=== PATIENT | male | born 1970 | race Caucasian/White ===

== ENCOUNTER 2017-03-17 10:13 | Inpatient (IN) | payer BC ==
[2017-03-17 10:49] LABS: BASOPHIL 0.7 % (0-2.0); EOSINOPHIL 0.7 % (0-4.5); MCH 31.1 pg (25.7-33.7); MCHC 34.6 g/dl (32.0-35.9); MEAN PLT VOLUME 8.4 fl (7.5-11.1); NEUTROPHILS 71.6 % (42.8-82.8); PLATELET COUNT 194 K/MM3 (134-434); RDW 14.9 % (11.9-15.9); WHITE BLOOD COUNT 7.3 K/mm3 (4.0-10.0)
--- NOTE | 2017-03-17 11:42 | PDOC ---
History of Present Illness - General Chief Complaint: Lightheaded Stated Complaint: LIGHTHEADED Time Seen by Provider: 03/17/17 10:17 History Source: Patient Exam Limitations: No Limitations - History of Present Illness Initial Comments: 03/17/17 11:03 46-year-old male presents to the ED for evaluation of intermittent dizziness worsened when leaning over For the past 3 weeks associated intermittent generalized headache, greater on the right side. Patient denies fever, chills, visual changes, neck pain, shortness of breath, chest pain, cough, abdominal pain, nausea, lower extremity edema, or weakness. Patient does state history of hypertension and takes his medication routinely but states he does not take his medication for the past 2 months for elevated cholesterol. Patient also state smokes a pack and half a day of cigarettes and today had went to his primary care physician for evaluation of symptoms above and when the EKG was reviewed by the provider Dr. Major and then reviewed by Dr. Koehler credit verification clerk it was concerning for either early repolarization versus stemi. Timing/Duration: intermittent Severity: moderate Associated Symptoms: reports: headaches, other Past History - Past Medical History Allergies/Adverse Reactions: Allergies Allergy/AdvReac Type Severity Reaction Status Date / Time No Known Allergies Allergy Verified 03/17/17 10:33 Home Medications: Ambulatory Orders Clonazepam [KlonoPIN] 0.5 mg PO BID 03/17/17 Lisinopril 10 mg PO DAILY 03/17/17 Risperidone [Risperdal] 2 mg PO DAILY 03/17/17 Sertraline HCl 25 mg PO AM 03/17/17 Sertraline HCl 50 mg PO HS 03/17/17 Trazodone HCl [Desyrel -] 50 mg PO HS 03/17/17 HTN: Yes Hypercholesterolemia: Yes Psychiatric Problems: Yes (depression/anxiety) - Family Disease History Family Disease History: CA: Father (lung) - Psycho/Social/Smoking Cessation Hx Anxiety: No Suicidal Ideation: No Smoking History: Current every day smoker Have you smoked in the past 12 months: Yes Number of Cigarettes Smoked Daily: 30 Information on smoking cessation initiated: No Hx Alcohol Use: No Drug/Substance Use Hx: No Substance Use Type: None Patient Lives Alone: Yes Lives with/in: lives alone Review of Systems - Review of Systems Able to Perform ROS?: Yes Constitutional: No: Symptoms Reported HEENTM: No: Symptoms Reported Respiratory: No: Symptoms reported Cardiac (ROS): Yes: Lightheadedness ABD/GI: No: Symptoms Reported : No: Symptoms Reported Musculoskeletal: No: Symptoms Reported Integumentary: No: Symptoms Reported Neurological: Yes: Headache, Dizziness Hematologic/Lymphatic: No: Symptoms Reported *Physical Exam - Vital Signs Last Vital Signs Temp Pulse Resp BP Pulse Ox 97.3 F L 68 20 126/92 97 03/17/17 10:30 03/17/17 10:30 03/17/17 10:30 03/17/17 10:30 03/17/17 10:30 - Physical Exam General Appearance: Yes: Nourished, Appropriately Dressed. No: Apparent Distress HEENT: positive: KARMA, TMs Normal, Pharynx Normal. negative: Pale Conjunctivae Neck: positive: Normal Thyroid, Supple. negative: Lymphadenopathy (R), Lymphadenopathy (L) Respiratory/Chest: positive: Lungs Clear, Normal Breath Sounds. negative: Respiratory Distress, Accessory Muscle Use Cardiovascular: positive: Regular Rhythm, Regular Rate. negative: Murmur Gastrointestinal/Abdominal: positive: Soft. negative: Tenderness Integumentary: positive: Normal Color, Warm, Moist Neurologic: positive: Normal Mood/Affect (mildly anxious), Motor Strength 5/5 ( ambulatory) Heart Score/ECG Review - History History: Slightly suspicious - Electrocardiogram EKG: Normal - Age Age: 45-65 - Risk Factors Risk Factors Heart Score: Yes Hx Hypercholesterolemia, Yes Hx Hypertension, Yes Smoking History Based on the list above the patient has:: >/=3 risk factors or Hx atherosclerotic disease - Troponin Troponin: </= normal limit - Score Heart Score - Total: 3 - ECG Intrepretation Rhythm: Regular Rhythm (rate 62 with noted early repolarization) ED Treatment Course - LABORATORY CBC & Chemistry Diagram: 03/17/17 10:33 03/17/17 10:33 - ADDITIONAL ORDERS Additional order review: 03/17/17 10:33 RBC 4.58 MCV 90.0 MCHC 34.6 RDW 14.9 MPV 8.4 Neutrophils % 71.6 Lymphocytes % 20.8 Monocytes % 6.2 Eosinophils % 0.7 Basophils % 0.7 - RADIOLOGY Radiology Studies Ordered: Category Date Time Status CHEST CT WITH CONTRAST [CT] Stat CT Scan 03/17/17 11:[address] WITHOUT CONTRAST [CT] Stat CT Scan 03/17/17 10:25 Taken CHEST X-RAY PORTABLE* [RAD] Stat Radiology 03/17/17 10:25 Completed CAROTID COLOR FLOW DOPP US [US] Stat Ultrasound 03/17/17 10:25 Ordered Medical Decision Making - Medical Decision Making 03/17/17 11:12 Patient sent over from Dr. Major's office to evaluate for dizziness and abnormal EKG. Patient with strong smoking history along with hypertension and dyslipidemia which she does not take his Lipitor for the past 2 months due to noncompliance. Patient also has family history of lung CA. Patient concerning for ACS versus intracranial pathology versus carotid involvement versus lung involvement. Patient ordered for labs including cardiac enzymes, CBC, comp chest x-ray, EKG head CT, and carotid duplex 03/17/17 11:50 Chest x-ray shows a noncalcified well demarcated circular mass in the right upper hemothorax causing deviation of his trachea to the left side. The size of the mass is apparently 7 cm x 6 cm which on the differential is lymphoma versus thymoma among other conditions. Patient ordered for CT with IV contrast of the chest. Laboratory Tests 03/17/17 03/17/17 10:33 10:33 WBC 7.3 Hgb 14.2 Hct 41.2 Plt Count 194 Neutrophils % 71.6 Sodium 141 Potassium 4.9 Chloride 107 Carbon Dioxide 26 Anion Gap 8 BUN 20 H Creatinine 0.9 Creat Clearance w eGFR > 60 Random Glucose 108 H Calcium 9.2 Total Bilirubin 0.3 AST 13 L Alkaline Phosphatase 51 Troponin I < 0.02 Total Protein 7.1 Albumin 4.0 03/17/17 13:27 CT of the chest shows a large well circumscribed right upper lobe mass of uncertain etiology measuring 9.7 x 9.1 x 9.2 cm. Malignancy cannot be excluded and a percutaneous needle biopsy is recommended at this time. Due to patient's symptoms and recent findings I will contact the patient's PCP Dr. Major to discuss admission. The medical can't year has called the office of Dr. Koehler 3 with no call back. I have spoken to Dr. Mcgee who recommended I speak to Dr. Koehler. Patient is no complaints of chest pain, dyspnea troponins are negative. Carotid Doppler shows no evidence of hemodynamically significant stenosis. No loss of volume plaque or evidence of dissection. 03/17/17 13:[address] Koehler who recommended a second troponin EKG and echo and to admit to telemetry. I discussed the case with Dr. romeo who will accept the patient to service. Patient will be admitted to telemetry inpatient. *DC/Admit/Observation/Transfer Diagnosis at time of Disposition: Dizziness, Abnormal electrocardiography, Mass of right lung - Discharge Dispostion Admit: Yes
[2017-03-17 11:46] LABS: ANION GAP 8 (8-16); BILIRUBIN,TOTAL 0.3 mg/dL (0.2-1.0); CALCIUM 9.2 mg/dL (8.5-10.1); CO2 26 mmol/L (21-32); CREATININE 0.9 mg/dL (0.7-1.3); GLUCOSE,RANDOM 108 mg/dL (74-106); SGOT/AST 13 U/L (15-37); SGPT/ALT 23 U/L (12-78); TOT PROT 7.1 g/dl (6.4-8.2)
[2017-03-17 11:49] LABS: ALK PHOS 51 U/L (45-117); TROPONIN I < 0.02 ng/ml (0.00-0.05)
[2017-03-17] MEDS ORDERED: LORAZEPAM CARPU-JECT 2 MG/ML DISP.SYRIN IVPUSH ONE (14:51)
--- NOTE | 2017-03-17 15:04 | HP ---
Admitting History and Physical - Primary Care Physician PCP: Mari Major - Admission Chief Complaint: I feel fine History of Present Illness: Mr Alexander is a 46 year old male who comes in with possible abnormal EKG readings. He says he is feeling fine and is without complaint. He denies fevers , chills, lightheadedness, passing out, chest pain, shortness of breath, nausea , vomiting, diarrhea, constipation, difficulty or pain on urination, or swelling. He was at his normal doctors appointment today and had possible EKG changes. He was sent here for further evaluation. History Source: Patient Limitations to Obtaining History: No Limitations - Past Medical History Cardiovascular: Yes: HTN Psych: Yes: Anxiety - Past Surgical History Past Surgical History: Yes: None - Smoking History Smoking history: Current every day smoker Have you smoked in the past 12 months: Yes Aproximately how many cigarettes per day: 30 - Alcohol/Substance Use Hx Alcohol Use: No History of Substance Use: reports: None - Social History ADL: Independent History of Recent Travel: No Home Medications - Allergies Allergies/Adverse Reactions: Allergies Allergy/AdvReac Type Severity Reaction Status Date / Time No Known Allergies Allergy Verified 03/17/17 10:33 - Home Medications Home Medications: Ambulatory Orders Clonazepam [KlonoPIN] 0.5 mg PO BID 03/17/17 Lisinopril 10 mg PO DAILY 03/17/17 Risperidone [Risperdal] 2 mg PO DAILY 03/17/17 Sertraline HCl 25 mg PO AM 03/17/17 Sertraline HCl 50 mg PO HS 03/17/17 Trazodone HCl [Desyrel -] 50 mg PO HS 03/17/17 Family Disease History - Family Disease History Family Disease History: CA: Father (lung) Review of Systems Findings/Remarks: Full review of systems obtained, as per HPI and otherwise negative Physical Examination Vital Signs: Vital Signs Temperature 97.3 F L 03/17/17 10:30 Pulse Rate 68 03/17/17 10:30 Respiratory Rate 20 03/17/17 10:30 Blood Pressure 126/92 03/17/17 10:30 O2 Sat by Pulse Oximetry (%) 97 03/17/17 10:30 Constitutional: Yes: Well Nourished, No Distress, Calm Eyes: Yes: Conjunctiva Clear, EOM Intact, PERRL HENT: Yes: Atraumatic, Normocephalic Cardiovascular: Yes: Regular Rate and Rhythm. No: Gallop, Murmur, Rub Respiratory: Yes: Regular, CTA Bilaterally. No: Rales, Rhonchi, Wheezes Gastrointestinal: Yes: Normal Bowel Sounds, Soft. No: Distention, Tenderness Extremities: Yes: WNL Edema: No Labs: Laboratory Results - last 24 hr 03/17/17 03/17/17 10:33 10:33 WBC 7.3 RBC 4.58 Hgb 14.2 Hct 41.2 MCV 90.0 MCH 31.1 MCHC 34.6 RDW 14.9 Plt Count 194 MPV 8.4 Neutrophils % 71.6 Lymphocytes % 20.8 Monocytes % 6.2 Eosinophils % 0.7 Basophils % 0.7 Sodium 141 Potassium 4.9 Chloride 107 Carbon Dioxide 26 Anion Gap 8 BUN 20 H Creatinine 0.9 Creat Clearance w eGFR > 60 Random Glucose 108 H Calcium 9.2 Total Bilirubin 0.3 AST 13 L ALT 23 Alkaline Phosphatase 51 Creatine Kinase 74 Troponin I < 0.02 Total Protein 7.1 Albumin 4.0 Imaging - Results Chest X-ray: Report Reviewed, Image Reviewed Cat Scan: Report Reviewed, Image Reviewed Problem List - Problems (1) Mass of right lung Assessment/Plan: -patient with newly found right lung mass -admit to the hospital -will need biopsy, consult pulmonary -concerning for malignancy with smoking history and family history Code(s): R91.8 - OTHER NONSPECIFIC ABNORMAL FINDING OF LUNG FIELD (2) Abnormal EKG Assessment/Plan: -cardiology consulted -first set of cardiac enzymes negative -monitor on telemetry Code(s): R94.31 - ABNORMAL ELECTROCARDIOGRAM [ECG] [EKG] (3) Anxiety Assessment/Plan: -continue home regimen -add prn ativan, patient is very anxious considering diagnosis Code(s): F41.9 - ANXIETY DISORDER, UNSPECIFIED (4) HTN (hypertension) Assessment/Plan: -continue lisinopril Code(s): I10 - ESSENTIAL (PRIMARY) HYPERTENSION (5) Tobacco abuse Assessment/Plan: -instructed patient he cannot smoke while admitted -nicotine patch Code(s): Z72.0 - TOBACCO USE
[2017-03-17] MEDS ORDERED: LORAZEPAM CARPU-JECT 2 MG/ML DISP.SYRIN ONE (15:05)
--- NOTE | 2017-03-17 15:48 | CON.CARD ---
Consult Consult Specialty:: cardio Referred by:: agueda Reason for Consultation:: LH, abnormal ECG - History of Present Illness Chief Complaint: lightheaded History of Present Illness: 46 yo male sent from PMD today for very abnormal ecg with changes vs prior. sees dr romero in our office. presented for sick visit to office today c/o lightheadedness for the past 3 weeks when he bends down and gets up quickly, or when he gets up out of bed. sees black and he feels like he's going to lose his balance and faint. Denies any spinning sensation his head. The whole episode lasts for 5-8 seconds. frequency episodes, had to take off from work x2d b/c of this. Of note, he's lost 20 pounds because he's doing a lot more walking in his opinion. He has started to drink more water and Gatorade to be more hydrated which helped a little bit but sx's didn't resolve. Never gets chest discomfort, palpitations, or SOB. ECG in office today showed concave ST segment elevation in lateral leads and V4- 6 with deep TWIs inferior leads--changed vs 10/25/16 (no other priors). there was terminal QRS complex finding suggestive of possible early repolarization normal variant. no SD depression and no signif SD elevation in lead aVR. sent to ER for STARR x 2 and echo. CXR showed mass in RUL--CT chest showed 9cm well-demarcated mass. continues to deny any cp, sob, palpitations. no dizzy here in hospital bed. denies facial plethora/pain though has had mild PORTILLO PMH: HTN HPL + active cigs depressions (prior hospitalization, on meds) no DM no prior CV dz FH: father lung cancer; no CAD M-GM and GF and M-uncle with CO/CAD - Alcohol/Substance Use Hx Alcohol Use: No - Smoking History Smoking history: Current every day smoker Have you smoked in the past 12 months: Yes Aproximately how many cigarettes per day: 30 Home Medications - Allergies Allergies/Adverse Reactions: Allergies Allergy/AdvReac Type Severity Reaction Status Date / Time No Known Allergies Allergy Verified 03/17/17 10:33 - Home Medications Home Medications: Ambulatory Orders Clonazepam [KlonoPIN] 0.5 mg PO BID 03/17/17 Lisinopril 10 mg PO DAILY 03/17/17 Risperidone [Risperdal] 2 mg PO DAILY 03/17/17 Sertraline HCl 25 mg PO AM 03/17/17 Sertraline HCl 50 mg PO HS 03/17/17 Trazodone HCl [Desyrel -] 50 mg PO HS 03/17/17 Review of Systems - Review of Systems Constitutional: denies: Chills, Fever Eyes: denies: Eye Pain HENT: denies: Nasal Congestion Neck: denies: Stiffness Cardiovascular: denies: Palpitations Respiratory: denies: Orthopnea, PND Gastrointestinal: denies: Diarrhea, Rectal Bleeding Genitourinary: denies: Burning, Hematuria Musculoskeletal: denies: Muscle Pain Integumentary: denies: Rash Neurological: denies: Numbness, Seizure, Syncope Endocrine: denies: Excessive Sweating Hematology/Lymphatic: denies: Excessive Bleeding Vital Signs: Vital Signs Temperature 97.3 F L 03/17/17 10:30 Pulse Rate 68 03/17/17 10:30 Respiratory Rate 20 03/17/17 10:30 Blood Pressure 126/92 03/17/17 10:30 O2 Sat by Pulse Oximetry (%) 97 03/17/17 10:30 Constitutional: Yes: Well Nourished, No Distress Eyes: No: Sclera Icterus HENT: No: Nasal Congestion Neck: No: Decreased ROM Respiratory: Yes: CTA Bilaterally. No: Accessory Muscle Use, Rales, Wheezes Gastrointestinal: Yes: Normal Bowel Sounds. No: Distention, Hepatomegaly, Palpable Mass, Tenderness Cardiovascular: Yes: Regular Rate and Rhythm. No: Rub JVD: Yes Carotid Bruit: No PMI: Non-Displaced Heart Sounds: Yes: S1, S2. No: Gallop Murmur: No: Systolic Murmur, Diastolic Murmur Musculoskeletal: Yes: Other (No kyphosis) Extremities: No: Cold, Cyanosis Edema: No Peripheral Pulses: 2+ Left Carotid, 2+ Right Carotid, 2+ Left Doralis Pedis, 2+ Right Dorsalis Pedis Integumentary: No: Jaundice Neurological: Yes: Alert, Oriented (x3) Psychiatric: No: Agitated - Other Data Labs, Other Data: Laboratory Tests 03/17/17 03/17/17 10:33 10:33 WBC 7.3 Hgb 14.2 Plt Count 194 Sodium 141 Potassium 4.9 Carbon Dioxide 26 BUN 20 H Creatinine 0.9 AST 13 L ALT 23 Creatine Kinase 74 Troponin I < 0.02 Assessment/Plan CT head: no acute pathology ECG 03/17 am from office: see [facility] ECG x 2 03/17 (ER and on 4W): NSR, early repol appearance with ST elevations signif less than office ecg today; inferior TWIs much less pronounced Carotid dopplers: no plaque or stenosis or dissection seen Echo 03/17/17 (): nl LVSF with no RWMA seen. nl RV. nl LA. valves WNL. normal aortic root. no peric effusion. lightheadedness: -new positional sx, more likely related to change in head position than upright posture with leg dependency. still, may be orthostatic hypotension (recent 20 lb wt loss, with accentuation of anti-hypertensive med effect?) -? related to local lung mass effects?--no overt SVC syndrome/facial plethora appreciated on exam though mild JVD noted--per pulm/pmd -not overtly hypovolemic by labs -check orthostatics -will hold lisinopril for now abnormal ECG: -suspect normal variant pattern (early repol) with waxing and waning appearance -no sx's at all of acute myocardial ischemia -trop neg x 1--for rpt later tonight -echo normal LVSF with no RWMA, no effusion -has no rub on exam HTN: -hold lisinopril, observe LH sx's, check orthostatics -monitor bp trend HPL: -per outpt mgmt lung mass: -per PMD/pulm for biopsy plans +tobacco abuse: -pt counselled on cessation and benefits re: CV and malignancy risk
[2017-03-17] MEDS: LORazepam 1 MG TABLET PO PRN (16:10)
[2017-03-17] MEDS: NICOTINE 21 MG/24 HOURS TOPICAL PATCH TD SCH (16:10)
[2017-03-17 16:15] VITALS: BMI 29.8
[2017-03-17 18:26] LABS: CPK 76 IU/L (39-308); TROPONIN I < 0.02 ng/ml (0.00-0.05)
[2017-03-17] MEDS: ACETAMINOPHEN 325 MG TABLET (FP) PO PRN (20:14)
[2017-03-17] MEDS: traZODone HCL 50 MG TABLET (FP) PO SCH (21:02)
[2017-03-17] MEDS: SERTRALINE HCL 50 MG TABLET (FP) PO SCH (21:02)
[2017-03-17] MEDS: clonazePAM 0.5 MG TABLET PO SCH (21:02)
[2017-03-17] MEDS ORDERED: oxyCODONE HCL 5 MG TABLET PO ONE (21:42)
--- NOTE | 2017-03-17 22:07 | HOSP ---
Subjective - Review of Symptoms Events since last encounter: Called by the nurse 2x, stating that the patient takes percocet at home since has chronic pain . will order oxycodone 5mg x 1 dose now, tylenol was given earlier. As per nurse, patient takes 10mg percocet at home. Vital Signs Temperature 98.0 F 03/17/17 17:00 Pulse Rate 73 03/17/17 17:00 Respiratory Rate 18 03/17/17 17:00 Blood Pressure 137/91 03/17/17 17:00 O2 Sat by Pulse Oximetry (%) 95 03/17/17 15:25 CBCD WBC 7.3 K/mm3 (4.0-10.0) 03/17/17 10:33 RBC 4.58 M/mm3 (4.00-5.60) 03/17/17 10:33 Hgb 14.2 GM/dL (11.7-16.9) 03/17/17 10:33 Hct 41.2 % (35.4-49) 03/17/17 10:33 MCV 90.0 fl (80-96) 03/17/17 10:33 MCHC 34.6 g/dl (32.0-35.9) 03/17/17 10:33 RDW 14.9 % (11.9-15.9) 03/17/17 10:33 Plt Count 194 K/MM3 (134-434) 03/17/17 10:33 MPV 8.4 fl (7.5-11.1) 03/17/17 10:33 CMP Sodium 141 mmol/L (136-145) 03/17/17 10:33 Potassium 4.9 mmol/L (3.5-5.1) 03/17/17 10:33 Chloride 107 mmol/L (98-107) 03/17/17 10:33 Carbon Dioxide 26 mmol/L (21-32) 03/17/17 10:33 Anion Gap 8 (8-16) 03/17/17 10:33 BUN 20 mg/dL (7-18) H 03/17/17 10:33 Creatinine 0.9 mg/dL (0.7-1.3) 03/17/17 10:33 Creat Clearance w eGFR > 60 (>60) 03/17/17 10:33 Random Glucose 108 mg/dL (74-106) H 03/17/17 10:33 Calcium 9.2 mg/dL (8.5-10.1) 03/17/17 10:33 Total Bilirubin 0.3 mg/dL (0.2-1.0) 03/17/17 10:33 AST 13 U/L (15-37) L 03/17/17 10:33 ALT 23 U/L (12-78) 03/17/17 10:33 Alkaline Phosphatase 51 U/L (45-117) 03/17/17 10:33 Total Protein 7.1 g/dl (6.4-8.2) 03/17/17 10:33 Albumin 4.0 g/dl (3.4-5.0) 03/17/17 10:33 CARDIAC ENZYMES Creatine Kinase 76 IU/L (39-308) 03/17/17 17:20 Troponin I < 0.02 ng/ml (0.00-0.05) 03/17/17 17:20 Current Medications Generic Name Dose Route Start Last Admin Trade Name Jenaro PRN Reason Stop Dose Admin Acetaminophen 650 mg 03/17/17 14:59 03/17/17 20:14 Tylenol - PO 650 mg Q4H PRN Administration FEVER OR PAIN Clonazepam 0.5 mg 03/17/17 22:00 03/17/17 21:02 Klonopin - PO 0.5 mg BID CHUY Administration Lorazepam 1 mg 03/17/17 15:03 03/17/17 16:10 Ativan - PO 1 mg TID PRN Administration ANXIETY Nicotine 21 mg 03/17/17 15:15 03/17/17 16:10 Nicoderm Patch - TD 21 mg DAILY CHYU Administration Nicotine 21 mg 03/18/17 10:00 Nicoderm Patch - TD DAILY CHUY Risperidone 2 mg 03/18/17 10:00 Risperdal - PO DAILY CHUY Sertraline HCl 25 mg 03/18/17 07:00 Zoloft - PO AM CHUY Sertraline HCl 50 mg 03/17/17 22:00 03/17/17 21:02 Zoloft - PO 50 mg HS CHUY Administration Trazodone HCl 50 mg 03/17/17 22:00 03/17/17 21:02 Desyrel - PO 50 mg HS CHUY Administration Home Medications Medication Instructions Recorded Clonazepam [KlonoPIN] 0.5 mg PO BID 03/17/17 Lisinopril 10 mg PO DAILY 03/17/17 Risperidone [Risperdal] 2 mg PO DAILY 03/17/17 Sertraline HCl 25 mg PO AM 03/17/17 Sertraline HCl 50 mg PO HS 03/17/17 Trazodone HCl [Desyrel -] 50 mg PO HS 03/17/17 Physical Examination Vital Signs: Vital Signs Temperature 98.0 F 03/17/17 17:00 Pulse Rate 73 03/17/17 17:00 Respiratory Rate 18 03/17/17 17:00 Blood Pressure 137/91 03/17/17 17:00 O2 Sat by Pulse Oximetry (%) 95 03/17/17 15:25
[2017-03-18] MEDS: LORazepam 1 MG TABLET PO PRN ×2 (06:25→20:18)
[2017-03-18] MEDS: SERTRALINE HCL 25 MG TABLET (FP) PO SCH (06:25)
[2017-03-18 07:27] LABS: BASOPHIL 0.5 % (0-2.0); EOSINOPHIL 1.3 % (0-4.5); MCH 31.5 pg (25.7-33.7); MCHC 35.2 g/dl (32.0-35.9); MEAN CELL VOLUME 89.5 fl (80-96); MEAN PLT VOLUME 8.2 fl (7.5-11.1); NEUTROPHILS 72.5 % (42.8-82.8); PLATELET COUNT 169 K/MM3 (134-434); RDW 14.7 % (11.9-15.9); WHITE BLOOD COUNT 9.1 K/mm3 (4.0-10.0)
[2017-03-18 08:06] LABS: ANION GAP 6 (8-16); CALCIUM 8.7 mg/dL (8.5-10.1); CO2 26 mmol/L (21-32); GLUCOSE,RANDOM 110 mg/dL (74-106); MAGNESIUM 1.9 mg/dL (1.8-2.4); PHOSPHOROUS 2.9 mg/dL (2.5-4.9)
[2017-03-18 08:08] LABS: CPK 64 IU/L (39-308); TROPONIN I < 0.02 ng/ml (0.00-0.05)
--- NOTE | 2017-03-18 08:28 | PN ---
Progress Note, Physician Chief Complaint: LH, abnormal ECG History of Present Illness: no dizzy/LH spells. no cp, sob, palpitations, orthopnea - Current Medication List Current Medications: Active Medications Acetaminophen (Tylenol -) 650 mg PO Q4H PRN PRN Reason: FEVER OR PAIN Last Admin: 03/17/17 20:14 Dose: 650 mg Clonazepam (Klonopin -) 0.5 mg PO BID CHUY Last Admin: 03/17/17 21:02 Dose: 0.5 mg Lorazepam (Ativan -) 1 mg PO TID PRN PRN Reason: ANXIETY Last Admin: 03/18/17 06:25 Dose: 1 mg Nicotine (Nicoderm Patch -) 21 mg TD DAILY CHUY Last Admin: 03/17/17 16:10 Dose: 21 mg Nicotine (Nicoderm Patch -) 21 mg TD DAILY CHUY Risperidone (Risperdal -) 2 mg PO DAILY CHUY Sertraline HCl (Zoloft -) 25 mg PO AM CHUY Last Admin: 03/18/17 06:25 Dose: 25 mg Sertraline HCl (Zoloft -) 50 mg PO HS CHUY Last Admin: 03/17/17 21:02 Dose: 50 mg Trazodone HCl (Desyrel -) 50 mg PO HS CHUY Last Admin: 03/17/17 21:02 Dose: 50 mg - Objective Vital Signs: Vital Signs Temperature 98.4 F 03/18/17 05:00 Pulse Rate 63 03/18/17 05:00 Respiratory Rate 18 03/18/17 05:00 Blood Pressure 145/77 03/18/17 05:00 O2 Sat by Pulse Oximetry (%) 95 03/17/17 21:00 Constitutional: Yes: No Distress, Calm Cardiovascular: Yes: Regular Rate and Rhythm, S1, S2. No: Gallop, Murmur Respiratory: Yes: CTA Bilaterally. No: Accessory Muscle Use, Rales, Wheezes Extremities: No: Cold Edema: No Integumentary: No: Jaundice Neurological: Yes: Alert, Oriented (x3) Psychiatric: No: Agitated Labs: CBC, BMP 03/18/17 05:35 03/18/17 05:35 - ....Imaging EKG: Other (tele: NSR) Assessment/Plan CT head: no acute pathology ECG 03/17 am from office: see HPI ECG x 2 03/17 (ER and on 4W): NSR, early repol appearance with ST elevations signif less than office ecg today; inferior TWIs much less pronounced Carotid dopplers: no plaque or stenosis or dissection seen Echo 03/17/17 (): nl LVSF with no RWMA seen. nl RV. nl LA. valves WNL. normal aortic root. no peric effusion. lightheadedness: -new positional sx, more likely related to change in head position than upright posture with leg dependency. still, may be orthostatic hypotension (recent 20 lb wt loss, with accentuation of anti-hypertensive med effect?) -? related to local lung mass effects?--no overt SVC syndrome/facial plethora appreciated on exam though mild JVD noted--per pulm/pmd -not overtly hypovolemic by labs -sx's not suspicious for bradyarrhythmia -unimpressive orthostatic BP drop (8 mmHg)--doubt cause of his sx's abnormal ECG: -suspect normal variant pattern (early repol) with waxing and waning appearance -no sx's at all of acute myocardial ischemia -trop neg x 3 -echo normal LVSF with no RWMA, no effusion -has no rub on exam -no concerns clinically for ACS or pericarditis HTN: -bp moderately elevated off lisinopril--resumed 03/18 (doubt orthostatic hypotension is cause of LH sx's) HPL: -per outpt mgmt lung mass: -per PMD/pulm for biopsy plans +tobacco abuse: -pt counselled on cessation and benefits re: CV and malignancy risk D/C TELEMETRY
[2017-03-18] MEDS: NICOTINE 21 MG/24 HOURS TOPICAL PATCH TD SCH ×2 (09:27→12:01)
[2017-03-18] MEDS: ACETAMINOPHEN 325 MG TABLET (FP) PO PRN (09:27)
[2017-03-18] MEDS: clonazePAM 0.5 MG TABLET PO SCH ×2 (09:27→21:09)
[2017-03-18] MEDS: LISINOPRIL 10 MG TABLET (FP) PO SCH (09:27)
--- NOTE | 2017-03-18 09:36 | CON.PULM ---
Consult Consult Specialty:: PULMONARY Referred by:: INDIO Reason for Consultation:: ABN CT CHEST - History of Present Illness Chief Complaint: ADMITTED W EKG CHANGES History of Present Illness: 46-year-old male presents to the ED for evaluation of intermittent dizziness worsened when leaning over For the past 3 weeks associated intermittent generalized headache, greater on the right side. Patient denies fever, chills, visual changes, neck pain, shortness of breath, chest pain, cough, abdominal pain, nausea, lower extremity edema, or weakness. Patient does state history of hypertension and takes his medication routinely but states he does not take his medication for the past 2 months for elevated cholesterol. Patient also state smokes a pack and half a day of cigarettes and today had gone to his primary care physician for evaluation of symptoms above and when the EKG was reviewed by the provider Dr. 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 Cardio/Vascular: Yes: HTN Pulmonary: No: Asthma, O2 Dependent, Previously Intubated Gastrointestinal: No: Ascites Hepatobiliary: No: Cirrhosis Renal/: No: Renal Failure Heme/Onc: No: Anemia Psych: Yes: Anxiety - Past Surgical History Past Surgical History: Yes: None - Alcohol/Substance Use Hx Alcohol Use: No History of Substance Use: reports: None - Smoking History Smoking history: Current every day smoker Have you smoked in the past 12 months: Yes Aproximately how many cigarettes per day: 30 - Social History ADL: Independent Place of : [facility] History of Recent Travel: No Home Medications - Allergies Allergies/Adverse Reactions: Allergies Allergy/AdvReac Type Severity Reaction Status Date / Time No Known Allergies Allergy Verified 03/17/17 10:33 - Home Medications Home Medications: Ambulatory Orders Clonazepam [KlonoPIN] 0.5 mg PO BID 03/17/17 Lisinopril 10 mg PO DAILY 03/17/17 Risperidone [Risperdal] 2 mg PO DAILY 03/17/17 Sertraline HCl 25 mg PO AM 03/17/17 Sertraline HCl 50 mg PO HS 03/17/17 Trazodone HCl [Desyrel -] 50 mg PO HS 03/17/17 Family Disease History - Family Disease History Family Disease History: CA: Father (lung) Review of Systems - Review of Systems Constitutional: denies: Fever Eyes: denies: Blurred Vision HENT: denies: Difficult Swallowing Neck: denies: Decreased ROM Cardiovascular: denies: Chest Pain Respiratory: reports: Cough, SOB on Exertion (one flight) Gastrointestinal: reports: No Symptoms Genitourinary: reports: No Symptoms Breasts: reports: No Symptoms Reported Musculoskeletal: reports: No Symptoms Integumentary: reports: No Symptoms Neurological: reports: No Symptoms Endocrine: reports: No Symptoms Physical Exam Vital Sings: Vital Signs Temperature 98.4 F 03/18/17 05:00 Pulse Rate 63 03/18/17 05:00 Respiratory Rate 18 03/18/17 05:00 Blood Pressure 145/77 03/18/17 05:00 O2 Sat by Pulse Oximetry (%) 95 03/17/17 21:00 Constitutional: Yes: Calm Eyes: Yes: EOM Intact HENT: Yes: Normocephalic Neck: Yes: Trachea Midline Cardiovascular: Yes: Regular Rate and Rhythm Respiratory: Yes: CTA Bilaterally Gastrointestinal: Yes: Normal Bowel Sounds Edema: No Integumentary: Yes: Tattoos Labs: CBC, BMP 03/18/17 05:35 03/18/17 05:35 rest reviewed Imaging - Results Chest X-ray: Report Reviewed, Image Reviewed Cat Scan: Report Reviewed, Image Reviewed Problem List - Problems (1) Abnormal EKG Code(s): R94.31 - ABNORMAL ELECTROCARDIOGRAM [ECG] [EKG] (2) HTN (hypertension) Code(s): I10 - ESSENTIAL (PRIMARY) HYPERTENSION (3) Mass of right lung Code(s): R91.8 - OTHER NONSPECIFIC ABNORMAL FINDING OF LUNG FIELD (4) Tobacco abuse Code(s): Z72.0 - TOBACCO USE Assessment/Plan SMOOTH LIKELY FLUID FILLED LARGE MASS RIGHT UPPER LOBE POSSIBLE ETIOLOGIES INCLUDE BRONCHOGENIC CYST/PULMONARY SEQUESTRATION(USUALLY LOWER LOBES) DOUBT MALIGNANT PROCESS PATIENT IS ASYMPTOMATIC WOULD SUGGEST WORKUP AN OUTPATIENT WITH CONSULTATION FROM THORACIC SURGERY IF CLEARED FROM CARDIOLOGY. SMOKING CESSATION COUNSELED HAVE SPOKEN TO PMD Clive RODAS MD
[2017-03-18] MEDS ORDERED: LISINOPRIL 10 MG TABLET (FP) PO SCH (10:00)
[2017-03-18] MEDS ORDERED: risperiDONE 2 MG TABLET PO SCH (10:00)
--- NOTE | 2017-03-18 10:10 | PN ---
Progress Note (short form) - Note Progress Note: Patient seen and examined Chart reviewed Events noted. Initially seen for abnormal EKG findings, now felt to represent normal variant with J point elevation and early repolarization. Abnormality on CXR followed by CT with large mass in RUL area. Case reviewed with Dr Delaney and Dr Koehler Will get Chest surgeon opinion. Patient denies new chest discomfort but is again asking for narcotic analgesic for low back pain, which he claims he gets from his psychiatrist, Dr Borja, in [place] and previously from a physician who he saw for back pain who has now retired. 20 lb weight loss noted which he relates to increased work activity. Had also complained of lightheadedness with change in head position without true syncope. Selected Entries 03/18/17 05:00 Temperature 98.4 F Pulse Rate 63 Respiratory 18 Rate Blood Pressure 145/77 Laboratory Tests 03/18/17 05:35 Sodium 140 Potassium 4.1 Chloride 108 H Carbon Dioxide 26 BUN 14 D Creatinine 1.0 Random Glucose 110 H Calcium 8.7 Phosphorus 2.9 Magnesium 1.9 Creatine Kinase 64 Troponin I < 0.02 Chest Clear Cor RRR Abd Soft NO mass no tenderness Ext No edema No phlebitis Neuro No new focal deficit Assessment and Plan Lung Mass Etiology unclear Smoker Thoracic surgery opinion requested May require biopsy and/or surgery Abn EKG Stable variant Low back pain Requesting Narcotic analgesics Psychiatric history On Rx Case discussed with Thoracic surgeon To consider surgical options
[2017-03-18] MEDS ORDERED: PT OWN MED DRAWER 7, Y5N ONE (10:26)
[2017-03-18] MEDS: oxyCODONE HCL 5 MG TABLET PO PRN ×2 (11:28→18:36)
--- NOTE | 2017-03-18 11:39 | CONSULT ---
Consult - text type - Consultation Consultation Note: Thoracic Surgery Consultation: CC: dizziness when bends down x 3 weeks HPI: 46M smoker (25 pack-years) who p/w 20lb weight loss over 3 months and positional dizziness x 3 weeks. 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 Denies dysphagia (that could account for weight loss), fever, night sweats, cough, hemoptysis, chest pain, or recent viral illness. Workup showed 9cm RUL mass and is reason for consultation. PMH/PSH: HTN, Low back pain, Anxiety, Right wrist surgery MEDS: see other notes ALL: NKDA Vitals in chart: no fevers PE: WD/WN Neck: no JONATHAN Chest: clear Cor: RRR ABD: no scars EXT: no edema LABS: wnl Imagin cm RUL mass Imp/Plan: Agree with Dr. Delaney's assessment as this is likely benign but given smoking history and weight loss would recommend further imaging (possible MR) and likely CT guided bx if not clear that this is duplication cyst. Workup should included esophagram as well. Other possibilities in differential are other congenital lesions likely intrapulmonary cyst, sequestration, CCAM, and on the malignant impression lymphoma and small cell as well as non-small cell. He wishes to go home and continue workup as outpatient. I have advised against this as we should get further information as to diagnosis prior to discharge. I have spent >40 minutes in consultation including review of images, history, physical, and labs, with more than half involved in counseling of patient and coordination of care with Dr. Delaney and Dr. Koehler.
[2017-03-18] MEDS: SERTRALINE HCL 50 MG TABLET (FP) PO SCH (21:09)
[2017-03-18] MEDS: traZODone HCL 50 MG TABLET (FP) PO SCH (21:09)
[2017-03-19] MEDS: oxyCODONE HCL 5 MG TABLET PO PRN ×3 (01:10→13:26)
[2017-03-19] MEDS: SERTRALINE HCL 25 MG TABLET (FP) PO SCH (06:04)
[2017-03-19] MEDS: LORazepam 1 MG TABLET PO PRN (06:04)
[2017-03-19] MEDS: clonazePAM 0.5 MG TABLET PO SCH (09:03)
[2017-03-19] MEDS: NICOTINE 21 MG/24 HOURS TOPICAL PATCH TD SCH ×2 (09:03→09:08)
[2017-03-19] MEDS: LISINOPRIL 10 MG TABLET (FP) PO SCH (09:03)
[2017-03-19] MEDS ORDERED: risperiDONE 1 MG TABLET (FP) PO SCH (10:00)
[2017-03-19 10:29] VITALS: BP 144/70; PULSE 66; TEMP 98.5
--- NOTE | 2017-03-19 11:04 | DS ---
Physical Examination Vital Signs: Vital Signs Temperature 98.5 F 03/19/17 10:00 Pulse Rate 66 03/19/17 10:00 Respiratory Rate 22 03/19/17 10:00 Blood Pressure 144/70 03/19/17 10:00 O2 Sat by Pulse Oximetry (%) 96 03/18/17 21:00 Constitutional: Yes: No Distress, Calm Eyes: No: Sclera Icterus Cardiovascular: Yes: Regular Rate and Rhythm Respiratory: Yes: CTA Bilaterally Edema: No Labs: CBC, BMP 03/18/17 05:35 03/18/17 05:35 Discharge Summary Reason For Visit: DIZZINESS,ABD EKG Current Active Problems Abnormal EKG (Chronic) Anxiety (Chronic) Dizziness HTN (hypertension) (Chronic treated) Mass of right lung (New finding possibly chronic) Tobacco abuse (Chronic) Hospital Course: Mass seen on CXR and CT of chest Case reviewed with Cardiology, Pulmonary and Thoracic surgeon MRI ordered for today Plan to allow for discharge with outpatient follow-up. Need for strict compliance reviewed at length with the patient, as was smoking cessation and diet/weight control Medications reconciled. Condition: Good - Instructions Diet, Activity, Other Instructions: Regular Weight loss. Referrals: Mari Major MD [Primary Care Provider] - Ovidio House MD [Staff Physician] - Disposition: HOME - Home Medications Comprehensive Discharge Medication List: Ambulatory Orders Clonazepam [KlonoPIN] 0.5 mg PO BID 03/17/17 Lisinopril 10 mg PO DAILY 03/17/17 Risperidone [Risperdal] 2 mg PO DAILY 03/17/17 Sertraline HCl 50 mg PO HS 03/17/17 Trazodone HCl [Desyrel -] 50 mg PO HS 03/17/17 Lorazepam [Ativan] 1 mg PO TID PRN #10 tablet MDD 3 03/19/17 Sertraline HCl [Zoloft -] 25 mg PO AM tablet 03/19/17
--- NOTE | 2017-03-19 11:05 | PN ---
Progress Note (short form) - Note Progress Note: Chief Complaint: LH, abnormal ECG History of Present Illness: no dizzy/LH spells. no cp, sob, palpitations, orthopnea - Current Medication List Current Medications: Active Medications Current Medications Generic Name Dose Route Start Last Admin Trade Name Freq PRN Reason Stop Dose Admin Acetaminophen 650 mg 03/17/17 14:59 03/18/17 09:27 Tylenol - PO 650 mg Q4H PRN Administration FEVER OR PAIN Clonazepam 0.5 mg 03/17/17 22:00 03/19/17 09:03 Klonopin - PO 0.5 mg BID CHUY Administration Lisinopril 10 mg 03/18/17 10:00 03/19/17 09:03 Prinivil PO 10 mg DAILY CHUY Administration Lorazepam 1 mg 03/17/17 15:03 03/19/17 06:04 Ativan - PO 1 mg TID PRN Administration ANXIETY Nicotine 21 mg 03/17/17 15:15 03/19/17 09:03 Nicoderm Patch - TD 21 mg DAILY CHUY Administration Nicotine 21 mg 03/18/17 10:00 03/19/17 09:08 Nicoderm Patch - TD Not Given DAILY CHUY Oxycodone HCl 10 mg 03/18/17 09:51 03/19/17 09:03 Roxicodone - PO 10 mg Q6H PRN Administration PAIN Risperidone 2 mg 03/19/17 10:00 03/19/17 09:03 Risperdal - PO 2 mg DAILY CHUY Administration Sertraline HCl 25 mg 03/18/17 07:00 03/19/17 06:04 Zoloft - PO 25 mg AM CHUY Administration Sertraline HCl 50 mg 03/17/17 22:00 03/18/17 21:09 Zoloft - PO 50 mg HS CHUY Administration Trazodone HCl 50 mg 03/17/17 22:00 03/18/17 21:09 Desyrel - PO 50 mg HS CHUY Administration - Objective Vital Signs: Vital Signs Period Temp Pulse Resp BP Sys/Waters Pulse Ox Last 24 Hr 97.6 F-98.5 F 54-71 18-22 107-144/56-85 96 Constitutional: Yes: No Distress, Calm Cardiovascular: Yes: Regular Rate and Rhythm, S1, S2. No: Gallop, Murmur Respiratory: Yes: CTA Bilaterally. No: Accessory Muscle Use, Rales, Wheezes Extremities: No: Cold Edema: No Integumentary: No: Jaundice diaphoresis Neurological: Yes: Alert, Oriented (x3) Psychiatric: No: Agitated Labs: CBC, BMP 03/18/17 05:35 03/18/17 05:35 CT head: no acute pathology ECG 03/17 am from office: see HPI ECG x 2 03/17 (ER and on 4W): NSR, early repol appearance with ST elevations signif less than office ecg today; inferior TWIs much less pronounced Carotid dopplers: no plaque or stenosis or dissection seen Echo 03/17/17 (): nl LVSF with no RWMA seen. nl RV. nl LA. valves WNL. normal aortic root. no peric effusion. Assessment/Plan lightheadedness: -new positional sx, more likely related to change in head position than upright posture with leg dependency. still, may be orthostatic hypotension (recent 20 lb wt loss, with accentuation of anti-hypertensive med effect?) -? related to local lung mass effects?--no overt SVC syndrome/facial plethora appreciated on exam though mild JVD noted--per pulm/pmd -not overtly hypovolemic by labs -sx's not suspicious for bradyarrhythmia -unimpressive orthostatic BP drop (8 mmHg)--doubt cause of his sx's abnormal ECG: -suspect normal variant pattern (early repol) with waxing and waning appearance -no sx's at all of acute myocardial ischemia -trop neg x 3 -echo normal LVSF with no RWMA, no effusion -has no rub on exam -no concerns clinically for ACS or pericarditis HTN: -bp moderately elevated off lisinopril--resumed 03/18 (doubt orthostatic hypotension is cause of LH sx's) HPL: -per outpt mgmt lung mass: -per PMD/pulm for biopsy plans +tobacco abuse: -pt counselled on cessation and benefits re: CV and malignancy risk cardiac machuca remains stable, ok to D/C TELEMETRY
--- NOTE | 2017-03-20 09:51 | EKG ---
Test Reason : Blood Pressure : / mmHG Vent. Rate : 063 BPM Atrial Rate : 063 BPM P-R Int : 204 ms QRS Dur : 096 ms QT Int : 432 ms P-R-T Axes : 034 016 025 degrees QTc Int : 442 ms NORMAL SINUS RHYTHM ST ELEVATION, CONSIDER EARLY REPOLARIZATION, PERICARDITIS, OR INJURY ABNORMAL ECG WHEN COMPARED WITH ECG OF 17-MAR-2017 10:26, NO SIGNIFICANT CHANGE WAS FOUND Confirmed by AMBER BRAND MD ([id number]) on 03/20/2017 9:51:14 AM Referred By: Confirmed By:AMBER BRAND MD
--- NOTE | 2017-03-20 09:55 | EKG ---
Test Reason : Blood Pressure : / mmHG Vent. Rate : 062 BPM Atrial Rate : 062 BPM P-R Int : 190 ms QRS Dur : 090 ms QT Int : 406 ms P-R-T Axes : 038 020 032 degrees QTc Int : 412 ms NORMAL SINUS RHYTHM WITH SINUS ARRHYTHMIA EARLY REPOLARIZATION NORMAL ECG NO PREVIOUS ECGS AVAILABLE Confirmed by AMBER BRAND MD ([id number]) on 03/20/2017 9:55:35 AM Referred By: Confirmed By:AMBER BRAND MD
== END 2017-03-19 13:26 | disposition home or self-care (01) | DRG 312 ==
LOC: JER 10:13 → JERBED 14:35 → J4W 15:55
PROVIDERS: ADMIT Internal Medicine; ATTEND Internal Medicine
DX: I95.1 Orthostatic hypotension (principal); R42 Dizziness and giddiness; I10 Essential (primary) hypertension; E78.5 Hyperlipidemia, unspecified; Z91.14 Patient's other noncompliance with medication regimen; R94.31 Abnormal electrocardiogram [ECG] [EKG]; F41.9 Anxiety disorder, unspecified; F32.9 Major depressive disorder, single episode, unspecified; R91.8 Other nonspecific abnormal finding of lung field; F17.210 Nicotine dependence, cigarettes, uncomplicated; M54.5 Low back pain
CPT/HCPCS: 36415; 70450-TC; 71010-TC; 71260-TC; 71550-TC; 80048; 80053; 82550; 83735; 84100; 84484; 85025; 93005; 93010; 93306-TC; 93880-TC; 99285-25; J2794